=== PATIENT | male | born 1995 | race Caucasian/White ===

== ENCOUNTER 2016-10-03 14:59 | Emergency (ER) | payer OTHER ==
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
--- NOTE | 2016-10-03 16:53 | ED ORDER SUMMARY ---
..... Patient: DEBBIE REESE OrderSheet [facility] VisitID: [id number] [place] [address] 21y, M Registration Date/Time: 10/03/2016 ORDER SHEET Weight: 61.2 kg (stated) Allergies: Penicillin GENERAL ORDERS: Mandible Complete Urgent (15:48 10/03/2016 Pina ALVARADO) ([facility] 15:48 [place] [address]) MEDICATION ORDERS: IV FLUIDS: ORDER SHEET NOTES: [Electronically signed by Sheriff Viral Cheng (17:03 10/03/2016)] [Electronically signed by Letty Ricardo MD (17:05 10/12/2016)] [Electronically locked/signed by Sheriff Viral Cheng (17:03 10/03/2016)]
--- NOTE | 2016-10-03 16:53 | ED ORDER SUMMARY ---
..... Patient: DEBBIE REESE OrderSheet [facility] VisitID: [id number] [place] [address] 21y, M Registration Date/Time: 10/03/2016 ORDER SHEET Weight: 61.2 kg (stated) Allergies: Penicillin GENERAL ORDERS: Mandible Complete Urgent (15:48 10/03/2016 Pina ALVARADO) ([facility] 15:48 [place] [address]) MEDICATION ORDERS: IV FLUIDS: ORDER SHEET NOTES: [Electronically signed by Sheriff Viral Cheng (17:03 10/03/2016)] [Electronically signed by Letty Ricardo MD (17:05 10/12/2016)] [Electronically locked/signed by Sheriff Viral Cheng (17:03 10/03/2016)]
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
--- NOTE | 2016-10-12 17:05 | ED MED RECONCILIATION SUMMARY ---
Patient: DEBBIE REESE Medication Reconciliation Report [facility] VisitID: [id number] [address] [place] [address] 21y, M Registration Date/Time: 10/03/2016 Weight: 61.2 kg Height/Length: 72 in. BMI: 18.3 ALLERGIES: Penicillin The patient's Home Medications are listed below: CONTINUE TAKING THE FOLLOWING MEDICATIONS: Adderall (30mg) Oral, daily The source(s) of the original Home Medication information: Not obtained. The following Medications were given to the patient in the Emergency Department: None. The following Medications were prescribed to the patient: None.
--- NOTE | 2016-10-12 17:05 | ED MAR SUMMARY ---
..... Medication Administration Record [facility] [address] [place], [place] [id number] Patient: DEBBIE REESE Jania Visit ID: [id number] 21y, M Weight: 61.2 kg Height/Length: 72 in BMI: 18.3 ALLERGIES: Penicillin
--- NOTE | 2016-10-12 17:05 | ED MED RECONCILIATION SUMMARY ---
Patient: DEBBIE REESE Medication Reconciliation Report [facility] VisitID: [id number] [address] [place] [address] 21y, M Registration Date/Time: 10/03/2016 Weight: 61.2 kg Height/Length: 72 in. BMI: 18.3 ALLERGIES: Penicillin The patient's Home Medications are listed below: CONTINUE TAKING THE FOLLOWING MEDICATIONS: Adderall (30mg) Oral, daily The source(s) of the original Home Medication information: Not obtained. The following Medications were given to the patient in the Emergency Department: None. The following Medications were prescribed to the patient: None.
--- NOTE | 2016-10-12 17:05 | ED MAR SUMMARY ---
..... Medication Administration Record [facility] [address] [place], [place] [id number] Patient: DEBBIE REESE Jania Visit ID: [id number] 21y, M Weight: 61.2 kg Height/Length: 72 in BMI: 18.3 ALLERGIES: Penicillin
== END 2016-10-03 17:00 | disposition home or self-care (01) ==
LOC: ED SRH 14:59
DX: S01.81XA Laceration without foreign body of other part of head, initial encounter (principal); V18.0XXA Pedal cycle driver injured in noncollision transport accident in nontraffic accident, initial encounter; Y93.55 Activity, bike riding; Y99.8 Other external cause status; Y92.410 Unspecified street and highway as the place of occurrence of the external cause; F10.129 Alcohol abuse with intoxication, unspecified